=== PATIENT | female | born 1930 | race African-American/Black ===

== ENCOUNTER → 2018-05-25 | Outpatient (CLI) | payer OTHER ==
[~2018-05-25] MED LIST: COZAAR50 MG; GABAPENTIN300 MG; LEVAQUIN500 MG PO; LIPITOR20 MG; METFORMIN HCL500 MG; PROTONIX40 M1; SYNTHROID100 MCG; TUSSI PRES-B L120 M1 PO; ZANTAC25 MG/1 ML
== END | disposition home or self-care (01) ==
LOC: MAMO-SONO 09:45 → SONOGRAMA 10:11
DX: M25.511 Pain in right shoulder (principal)

== ENCOUNTER → 2019-02-20 | Outpatient (CLI) | payer OTHER | END | disposition home or self-care (01) | LOC: RAD 11:31 | DX: J45.998 Other asthma (principal) ==

== ENCOUNTER 2020-01-18 10:29 | Emergency (ER) | payer OTHER ==
[~2020-01-18] VITALS: Ht 160 cm; Wt 76.2 kg
== END 2020-01-18 12:51 | disposition home or self-care (01) ==
LOC: ER 10:29
DX: S20.212A Contusion of left front wall of thorax, initial encounter (principal); S20.211A Contusion of right front wall of thorax, initial encounter; W18.39XA Other fall on same level, initial encounter; Y93.89 Activity, other specified; Y92.512 Supermarket, store or market as the place of occurrence of the external cause; Y99.8 Other external cause status

== ENCOUNTER 2020-10-22 13:21 | Emergency (ER) | payer OTHER ==
[~2020-10-22] VITALS: Ht 172.7 cm; Wt 81.6 kg
[2020-10-22] MEDS ORDERED: CLARITIN10 M1 PO (13:55)
[2020-10-22] MEDS ORDERED: OMEPRAZOLE20 MG (13:55)
[2020-10-22] MEDS ORDERED: AMLODIPINE-OLM1 EAC3 (13:56)
[2020-10-22] MEDS ORDERED: NAMENDA10 MG (13:56)
== END 2020-10-22 18:41 | disposition home or self-care (01) ==
LOC: ER 13:21 → CPU-OBS 14:07 → ER 18:41
DX: R07.89 Other chest pain (principal); Z03.818 Encounter for observation for suspected exposure to other biological agents ruled out

== ENCOUNTER 2021-06-12 09:12 | Inpatient (IN) | payer OTHER ==
[~2021-06-12] VITALS: Ht 157.5 cm; Wt 63.5 kg
[~2021-06-12 09:12] MED LIST changes: +AMLODIPINE-OLM1 EAC3; +CLARITIN10 M1 PO; +NAMENDA10 MG; +OMEPRAZOLE20 MG
[2021-06-12] MEDS ORDERED: AMLODIPINE-OLM1 EAC2 (09:32)
[2021-06-12] MEDS ORDERED: PEPCID AC10 MG (09:32)
== END 2021-06-15 17:16 | disposition home or self-care (01) | DRG 310 ==
LOC: ER 09:12 → MEDJ 21:42 → SEC-K 22:27 → SURG 23:02
PROVIDERS: ADMIT Specialist; ATTEND Specialist
PROC: 4A12X4Z Monitoring of Cardiac Electrical Activity, External Approach (ICD-10-PCS; principal; 2021-06-12)
PROC: B24BZZZ Ultrasonography of Heart with Aorta (ICD-10-PCS; 2021-06-13)
PROC: 3E0F7SF Introduction of Other Gas into Respiratory Tract, Via Natural or Artificial Opening (ICD-10-PCS; 2021-06-13)
PROC: BG44ZZZ Ultrasonography of Thyroid Gland (ICD-10-PCS; 2021-06-13)
DX: I49.8 Other specified cardiac arrhythmias (principal); Z20.822 Contact with and (suspected) exposure to COVID-19; I10 Essential (primary) hypertension; E11.9 Type 2 diabetes mellitus without complications; R00.0 Tachycardia, unspecified; E03.8 Other specified hypothyroidism

== ENCOUNTER → 2021-06-19 09:19 | Outpatient (CLI) | payer OTHER ==
[~2021-06-19 09:19] MED LIST changes: +AMLODIPINE-OLM1 EAC2; +PEPCID AC10 MG
== END | disposition home or self-care (01) ==
LOC: RAD 09:19
PROVIDERS: ATTEND Specialist
DX: J45.998 Other asthma (principal)

== ENCOUNTER 2021-08-21 10:37 | Emergency (ER) | payer OTHER ==
[~2021-08-21] VITALS: Ht 165.1 cm; Wt 81.6 kg
== END 2021-08-21 17:44 | disposition home or self-care (01) ==
LOC: ER 10:37
DX: R42 Dizziness and giddiness (principal); T38.1X5A Adverse effect of thyroid hormones and substitutes, initial encounter; Y92.89 Other specified places as the place of occurrence of the external cause

== ENCOUNTER 2021-08-25 12:34 | Emergency (ER) | payer OTHER ==
[~2021-08-25] VITALS: Ht 162.6 cm; Wt 74.8 kg
[2021-08-25] MEDS ORDERED: FORTAMET1000 MG PO (13:07)
[2021-08-25] MEDS ORDERED: LEVOTHYROXINE13 MCG PO (13:07)
[2021-08-25] MEDS ORDERED: PANTOPRAZOLE SO40 M2 PO (13:08)
[2021-08-25] MEDS ORDERED: COZAAR25 MG PO (13:08)
[2021-08-25] MEDS ORDERED: ATORVASTATIN CA40 MG PO (13:08)
[2021-08-25] MEDS ORDERED: DORZOLAMIDE HCL10 ML OP (13:09)
[2021-08-25] MEDS ORDERED: BRIMONIDINE TART5 M1 OP (13:10)
[2021-08-25] MEDS ORDERED: PEPCID AC20 MG PO (18:51)
== END 2021-08-25 18:57 | disposition home or self-care (01) ==
LOC: ER 12:34 → CPU-OBS 12:42 → ER 18:57
DX: K29.70 Gastritis, unspecified, without bleeding (principal); R07.89 Other chest pain